=== PATIENT | male | born 1955 | race Caucasian/White ===

== ENCOUNTER 2023-06-07 08:52 | Day surgery (SDC) | payer OTHER, MEDICARE ==
[2023-05-31 13:52] VITALS: BMI 27.3
[2023-06-07] MEDS ORDERED: LIDOCAINE HCL/PF 2% SDV 5ML VIAL ONE (10:41)
[2023-06-07] MEDS ORDERED: PROPOFOL 120 ML ONE (10:41)
[2023-06-07 11:25] VITALS: RESP 18; TEMP 97
[2023-06-07 11:35] VITALS: BP 110/70; PULSE 69
== END 2023-06-07 11:40 | disposition home or self-care (01) ==
LOC: FASU-ENDO 08:52
PROVIDERS: ATTEND Internal Medicine Gastroenterology
PROC: 0DJD8ZZ Inspection of Lower Intestinal Tract, Via Natural or Artificial Opening Endoscopic (ICD-10-PCS; principal; 2023-06-07 10:48)
DX: Z12.11 Encounter for screening for malignant neoplasm of colon (principal); Z83.719 Family history of colon polyps, unspecified